=== PATIENT | male | born 1965 | race American Indian/Alaskan Native ===

== ENCOUNTER 2020-09-18 06:33 | Day surgery (SDC) | payer OTHER ==
[2020-09-18] MEDS ORDERED: SODIUM CHLORIDE 0.9% 1000 ML 1,000 ML IV SCH (07:00)
--- NOTE | 2020-09-18 08:23 | Discharge Summary ---
Providers - Providers Date of Admission: 09/18/2020 Date of discharge: 09/18/20 Attending physician: ALBERTO JAIMES MD Primary care physician: FELIX GUILLEN MD Hospitalization Reason for admission: s/p egd w/ bx Procedures: EGD with bx Hospital course: Pt presented for a pre-op EGD as part of planning for up coming bariatric surgery. Procedure was uneventful and pt recovered well and was discharged to home. Disposition: DC-01 TO HOME OR SELFCARE Final Discharge Diagnosis (Prints w/discharge instructions): morbid obesity, gerd Core Measure Documentation - Palliative Care Palliative Care/ Comfort Measures: Not Applicable - Core Measures Any of the following diagnoses?: none Exam - Physical Exam Narrative exam: unchanged from pre-op - Constitutional Vitals: Temp Pulse Resp BP Pulse Ox 97.5 F L 76 19 118/79 97 09/18/20 07:20 09/18/20 07:20 09/18/20 07:20 09/18/20 07:20 09/18/20 07:20 Plan Activity: advance as tolerated Diet: low carbohydrate Follow up with: FELIX GUILLEN MD [Primary Care Provider] - 7 Days
--- NOTE | 2020-09-18 08:24 | Operative Report ---
Operative Report Operative Report: DATE: 09/18/2020 SURGERY: Upper endoscopy. SURGEON: Tequila Boyer M.D. PROCEDURE: EGD with biopsy PRE OP DX: morbid obesity, dyspepsia POST OP DX: morbid obesity, dyspepsia TYPE OF ANESTHESIA: MAC. ESTIMATED BLOOD LOSS: None. COMPLICATIONS: None. SPECIMENS REMOVED: antral biopsy FINDINGS: 1. Small hiatal hernia. 2. gastritis INDICATIONS:INDICATION FOR PROCEDURE: Patient is a 55-year-old male with a long history of morbid obesity. She is planned to have a weight loss procedure and is here for preoperative planning EGD. PROCEDURE DETAILS: After consent was reviewed, patient was taken back to the operating room where patient was placed in the left lateral decubitus position and a bite block was placed in the mouth. After a time-out was called, MAC anesthesia was initiated. I then passed the endoscope into her oropharynx, into her esophagus, visualized the entire esophagus, which was all within normal limits. Z-line was noted to about 40cm from incisors. I then visualized the stomach and the first portion of the duodenum and there were no abnormalities I could clearly visualize except for generalized gastritis consistent with peptic ulcer disease. A cold forceps biopsy of the antrum was taken and will be sent to pathology to evaluate for H.pylori. I then retroflexed the scope in the stomach and visualized the hiatus and I could see a small hiatal hernia. I then desufflated the stomach and removed the endoscope. Patient tolerated procedure well and was transferred to recovery room in good and stable condition.
[2020-09-18] MEDS ORDERED: fentaNYL 100 MCG/2 ML INJ ONE (08:30)
[2020-09-18] MEDS ORDERED: LIDOCAINE MPF (2%) 20 MG/1 ML VIAL 5 ML ONE (08:30)
[2020-09-18] MEDS ORDERED: ONDANSETRON 4 MG/2 ML INJ ONE (08:30)
[2020-09-18] MEDS ORDERED: propofoL 200 MG/20 ML VIAL IV ONE (08:32)
[2020-09-18 09:08] VITALS: BP 124/55
--- NOTE | 2020-09-18 18:49 | Anesthesia Day of Surgery ---
Anesthesia Day of Surgery - Day of Surgery Patient Examined: Yes Patient H&P Reviewed: Yes Patient is NPO: Yes
--- NOTE | 2020-09-18 18:50 | Anesthesia Consultation ---
Anesthesia Consult and Med Hx Date of service: 09/18/20 - Airway ROM Head & Neck: Adequate Mental/Hyoid Distance: Adequate Mallampati Class: Class III Intubation Access Assessment: Possibly Difficult - Pre-Operative Health Status ASA Pre-Surgery Classification: ASA3 Proposed Anesthetic Plan: MAC - Pulmonary Hx Sleep Apnea: Yes - Other Systems Hx Obesity: Yes
--- NOTE | 2020-09-18 18:50 | Post Anesthesia Evaluation ---
- Post Anesthesia Evaluation Patient Participated: Yes Airway Patent: Yes Stable Respiratory Function: Yes Nausea/Vomiting: No Temp > 96.8F: Yes Pain Manageable: Yes Adequeate Hydration: Yes Anesthesia Complications: No Block Receding Appropriately: Not Applicable Patient on Ventilator: No
== END 2020-09-18 06:34 | disposition home or self-care (01) ==
LOC: GIO 06:33
PROVIDERS: ATTEND Surgery
DX: K30 Functional dyspepsia (principal); E66.01 Morbid (severe) obesity due to excess calories; K29.50 Unspecified chronic gastritis without bleeding; K44.9 Diaphragmatic hernia without obstruction or gangrene; G47.30 Sleep apnea, unspecified; B96.81 Helicobacter pylori [H. pylori] as the cause of diseases classified elsewhere; Z68.43 Body mass index [BMI] 50.0-59.9, adult
CPT/HCPCS: 43239; 88305; 88342; J2405; J2704; J3010; J7030

== ENCOUNTER 2020-11-19 11:00 | Outpatient (CLI) | payer OTHER | END 2020-11-19 11:01 | disposition home or self-care (01) | LOC: SLR 11:00 | PROVIDERS: ATTEND Surgery | DX: G47.30 Sleep apnea, unspecified (principal) | CPT/HCPCS: G0399 ==

== ENCOUNTER 2021-01-21 06:12 | Inpatient (IN) | payer OTHER ==
[2021-01-18 10:20] LABS: Alanine Aminotransferase 38 units/L (7-56); Albumin 4.2 g/dL (3.9-5); BUN/Creatinine Ratio 19; Blood Urea Nitrogen 19 mg/dL (9-20); Calcium 9.4 mg/dL (8.4-10.2); Hemolysis Index 5
[2021-01-18 10:25] LABS: Hematocrit 49.9 % (35.5-45.6); Hemoglobin 16.6 gm/dl (11.8-15.2); Mean Corpuscular HGB Conc 33 % (32-34); Mean Corpuscular Volume 86 fl (84-94); Platelet Count 256 K/mm3 (140-440); Red Blood Count 5.81 M/mm3 (3.65-5.03)
--- NOTE | 2021-01-18 13:16 | Anesthesia Consultation ---
Anesthesia Consult and Med Hx Date of service: 01/21/21 - Airway Anesthetic Teeth Evaluation: Good ROM Head & Neck: Adequate Mental/Hyoid Distance: Adequate Mallampati Class: Class II Intubation Access Assessment: Probably Good - Pulmonary Exam CTA: Yes - Cardiac Exam Cardiac Exam: RRR - Pre-Operative Health Status ASA Pre-Surgery Classification: ASA3 Proposed Anesthetic Plan: General - Pulmonary Hx Smoking: No Hx Respiratory Symptoms: No (normal PFTs) Hx Sleep Apnea: Yes (+ CPAP, severe CASIMIRO recently diagnosed) - Cardiovascular System Hx Hypertension: No Hx Heart Attack/AMI: No (neg nuc stress test; normal EF) Hx Cardia Arrhythmia: No (frequent PVCs noted after exercise stress test) - Central Nervous System CVA: No - Endocrine Hx Renal Disease: No Hx Liver Disease: No Hx Insulin Dependent Diabetes: No Hx Non-Insulin Dependent Diabetes: No Hx Thyroid Disease: No - Other Systems Hx Obesity: Yes (BMI 55) - Additional Comments Anesthesia Medical History Comments: No hx anesthetic complications. Preop pulmonary, cardiology, and medical evals reviewed.
[~2021-01-21 06:12] MED LIST: ACETAMINOPHEN IV 1,000 MG/100 ML BOTTLE IV NR; ENOXAPARIN 40 MG/0.4 ML INJ SUB-Q NR; GABAPENTIN 500 MG/10 ML ORAL LIQD PO NR; LACTATED RINGERS 1,000 ML IV SCH; MIDAZOLAM 2 MG/2 ML INJ IV NR; SCOPOLAMINE TRANSDERMAL PATCH 72 HR TD NR; methOCARBAMOL 1,000 MG in SODIUM CHLORIDE 0.9% 250ML 250 ML IV ONE; metroNIDAZOLE/NS 500 MG/100 ML 500 MG/100 ML BAG IV NR
[2021-01-21] MEDS ORDERED: LACTATED RINGERS 1,000 ML ONE (06:26)
[2021-01-21] MEDS ORDERED: GABAPENTIN 500 MG/10 ML ORAL LIQD ONE (06:27)
[2021-01-21] MEDS ORDERED: LIDOCAINE MPF (2%) 20 MG/1 ML VIAL 5 ML ONE (07:04)
[2021-01-21] MEDS ORDERED: KETAMINE/STERILE WATER 50 MG/ML SYRINGE ONE (07:05)
[2021-01-21] MEDS ORDERED: HYDROmorphone 1 MG/1 ML INJ IV PRN ×3 (07:18→10:55)
[2021-01-21] MEDS ORDERED: ONDANSETRON 4 MG/2 ML INJ IV PRN ×2 (07:18→10:55)
--- NOTE | 2021-01-21 07:18 | Anesthesia Day of Surgery ---
Anesthesia Day of Surgery - Day of Surgery Patient Examined: Yes Patient H&P Reviewed: Yes Patient is NPO: Yes
[2021-01-21] MEDS ORDERED: MAGNESIUM SULFATE 2 GM/50 ML BAG IV ONE (07:19)
[2021-01-21] MEDS ORDERED: SUGAMMADEX SODIUM 200 MG/2 ML VIAL IV ONE (07:19)
[2021-01-21] MEDS ORDERED: BUPIVACAINE/PF (0.25%) 2.5 MG/ML 30 ML VIAL INFILTRATI ONE (07:35)
[2021-01-21] MEDS ORDERED: LIDOCAINE 1%/EPINEPHRINE 1:100,000 VIAL (20 ML) INFILTRATI ONE ×2 (07:35→09:07)
[2021-01-21] MEDS ORDERED: MIDAZOLAM 2 MG/2 ML INJ ONE (07:51)
--- OUTSIDE RECORDS SUMMARY | 2021-01-21 08:22 | External Medical Summary ---
:1965 Author Organization [facility], [facility] Address [address] [place] [address] Care Team Providers Name Role Phone Tequila Boyer Unavailable [phone] PROBLEMS Type Condition ICD9-CM HSU33-NU Onset Condition W/U Status Risk SNOM ED Notes Code Code Dates Status Code Problem Gastro-esopha K21.9 Active confirmed 602609 [id number] geal reflux disease without esophagitis Problem Sleep apnea, G47.30 Active confirmed 5870400 [id number] unspecified Problem Dietary Z71.3 Active confirmed 888825558 counseling and surveillance Problem Morbid E66.01 Active confirmed 693973121 (severe) obesity due to excess calories Problem Sleep G47.9 Active confirmed [id number] disorder, unspecified Problem 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 obesity due to excess of [facility] [place], [place] calorie s E66.01 ; [address] Gastro-esophage al reflux disease without esophagitis K21 .9 and Sleep apnea, unspecified G47 .30 IMMUNIZATIONS No Information SOCIAL HISTORY Sex Assigned At : Social History Observation Description Sex Assigned At Unknown REASON FOR REFERRAL from 1965 to 2021-01-18 Reason Gastric Bypass Diagnosis 1 Morbid (severe) obesity due to excess calories (E66.01) Diagnosis 2 Functional dyspepsia (K30) Diagnosis 3 Sleep disorder, unspecified (G47.9) Diagnosis 4 Gastro-esophageal reflux dis ease without esophagitis (K21.9) Diagnosis 5 Dietary counseling and surve illance (Z71.3) Diagnosis 6 Sleep apnea, unspecified (G4 7.30) Referral Organization [facility] Referring Provider First Name Tequila Referring Provider Last Name Rosalind Referring Provider Specialty Surgery Referred Provider Formerly [facility], - Referral Priority Routine VITAL SIGNS Height 72 in Dec, Weight 413 lbs Dec, Temperature 98 degrees Fahrenheit Dec, BMI 56.2 kg/m2 Dec, Blood pressure systolic 133 mm Hg Dec, Blood pressure diastolic 92 mm Hg Dec, MEDICATIONS Medication SIG (Take, Route, Notes Start Date End Date Status Frequency, Duration) Ondansetron 4 MG 1-2 tablet on the Dec, Active tongue and allow to dissolve Orally q 4-6 hours prn nausea for 30 day(s) Esomeprazole Magnesium 1 capsule Orally Once Dec, Active 40 MG a day for 30 day(s) NexIUM 40 MG 1 capsule Orally Once Sep, Active a day for 30 days Multivitamin Adults 50+ as directed Orally Active - HYDROcodone-Acetaminophe 15 ml as needed Orally Dec,Dec, Active n 7.5-325 MG/15ML every 6 hrs for 7 days PROCEDURES No Information RESULTS No Results REASON FOR VISIT Pre Op Bypass MEDICAL (GENERAL) HISTORY Type Description Date Medical History leg swelling Medical History urinary incontinence Medical History sleep apnea Medical History gerd Surgical History surgery for right broken leg 1976 Goals Section No Information Health Concerns No Information MEDICAL EQUIPMENT No Information MENTAL STATUS No Information FUNCTIONAL STATUS No Information ASSESSMENTS Encounter Date Diagnosis Assessment Notes Treatment Notes Treatm ent Clinical Notes Dec, Morbid (severe) An hour was spent obesity due to with patient excess calories reinforcing diet, (ICD-10 - E66.01) vitamin requirements and lifestyle education, A quiz was administered and reviewed to verify understanding of intended procedure and post operative care. Consent forms were reviewed with patient and signed answering all questions, Pre-operative labs were ordered. Dec, Gastro-esophageal Symptoms are reflux disease resolved after without gastric bypass. We esophagitis will continue to (ICD-10 - K21.9) take Nexium after surgery. Dec, Sleep apnea, Should improve after unspecified weight loss surgery. (ICD-10 - G47.30) Continue CPAP until no longer indicated. PLAN OF TREATMENT Medication Medication Name Sig Start Date Stop Date HYDROcodone-Acetaminophen 15 ml as needed Orally Dec, Dec, 7.5-325 MG/15ML every 6 hrs for 7 days Ondansetron 4 MG 1-2 tablet on the tongue Dec, and allow to dissolve Orally q 4-6 hours prn nausea for 30 day(s) Esomeprazole Magnesium 40 MG 1 capsule Orally Once a day Dec, for 30 day(s) Treatment Notes Assessment Notes Clinical Notes Morbid (severe) obesity due to An hour was spent with patinavi t excess calories reinforcing diet, vitamin requirements and lifestyle education, A quiz was administered and reviewed to verify understanding of intended procedure and post operative care. Consent forms were reviewed with patient and signed answering all questions, Pre-operative labs were ordered. Gastro-esophageal reflux disease Symptoms are resolved after gastric without esophagitis bypass. We will continue to take Nexium after surgery. Sleep apnea, unspecified Should improve after weight loss surgery. Continue CPAP until no longer indicated. Referrals Referral Date Details Gastric Bypass Next Appt Details For surgery Reason: Provider Name:Tequila Boyer, 2020-12-2 9 10:30:00 AM, [address] , [place], [place], [phone], Provider Name:Tequila Boyer, 2021-01-0 1 08:15:00 AM, [address], [place], [place], [phone],
[2021-01-21] MEDS ORDERED: ePHEDrine SULFATE 50 MG/1 ML INJ ONE (08:50)
[2021-01-21] MEDS ORDERED: BUPIVACAINE/PF (0.5%) 5 MG/1 ML 30 ML VIAL INFILTRATI ONE (09:06)
[2021-01-21] MEDS ORDERED: SODIUM CHLORIDE 0.9% IRR 1,500 ML BOTTLE IR ONE (09:08)
[2021-01-21] MEDS ORDERED: SODIUM CHLORIDE 0.9% IRRIG SOLN 2000 ML IR ONE (09:08)
[2021-01-21] MEDS ORDERED: dexAMETHasone 20 MG/5 ML VIAL ONE (09:30)
[2021-01-21] MEDS ORDERED: ONDANSETRON 4 MG/2 ML INJ ONE (09:36)
[2021-01-21] MEDS ORDERED: ATROPINE 0.4 MG/1 ML INJ ONE (09:36)
[2021-01-21] MEDS ORDERED: ROCURONIUM 50 MG/5 ML INJ IV ONE (09:36)
[2021-01-21] MEDS ORDERED: SIMETHICONE 80 MG CHEW TAB PO PRN (10:55)
[2021-01-21] MEDS ORDERED: METOCLOPRAMIDE 10 MG/2 ML INJ IV PRN (10:55)
[2021-01-21] MEDS ORDERED: HYDROcodone/Acetaminophen 7.5-325MG-15ML ORAL LIQD PO PRN (10:55)
[2021-01-21] MEDS ORDERED: hydrALAZINE 20 MG/1 ML INJ IV PRN (10:55)
[2021-01-21] MEDS ORDERED: MORPHINE 2 MG/1 ML INJ IV PRN (10:55)
--- NOTE | 2021-01-21 11:04 | Operative Report ---
Operative Report Operative Report: DATE OF PROCEDURE: 01/21/2021 SURGEON: Tequila Boyer M.D. DIRECTOR RECREATION: Madyson Krueger CSA MD PREOPERATIVE DIAGNOSIS: Morbid obesity. POSTOPERATIVE DIAGNOSES: Morbid obesity PROCEDURES PERFORMED: 1. Laparoscopic gastric bypass. 2. EGD. ANESTHESIA: General endotracheal tube intubation. SPECIMENS: None. ESTIMATED BLOOD LOSS: Less than 20 mL. FINDINGS: Normal anatomy. COMPLICATIONS: None. INDICATION: Mr. Love is a 55-year-old male with history of morbid obesity and sleep apnea who is here for bariatric surgery for weight loss. He signed informed consent and expressed understanding of risks and benefits. DESCRIPTION OF PROCEDURE: Patient was brought to the OR suite, laid in supine position. Bilateral lower extremity SCDs were placed. General anesthesia was induced via successful endotracheal tube intubation. Patient's abdomen was prepped and draped in sterile fashion. A veress needle was used to insuflate the abdomen to a pressure of 15 mmHg in the left subcostal region. Using Optiview technique, a 5- mm trocar was placed into the abdominal cavity under direct vision just superior and to the left of the umbilicus. There was noted to be no gross injury to any intraabdominal structures. 12 mm in the right mid abdomen mid clavicular line and three 5-mm trocars in the right upper quadrant, epigastric areas were placed under direct visualization. At this time, the ligament of Treitz identified and followed down approximately 75 cm and the jejunum was transected. The distal segment of jejunum was then traced for approximately 100 cm and a stable [id number] jejunojejunostomy was performed. The common enterotomy was closed with 2 firings of the endoscopic stapler. The mesenteric defect was closed with running Surgidac suture. This anastomosis was found to be patent without kink, obstruction or bleeding. At this time, the patient was placed in steep reverse Trendelenburg position. A liver retractor was placed through the epigastric port to elevate the left lateral lobe of the liver. A small gastric pouch was formed with serial firings of the blue load on a laparoscopic stapler. The Michael limb was then brought in an antegastric antecolic fashion and secured with 2 stay sutures to the gastric pouch. After this, the enterotomies were made with Harmonic scalpel, and a [id number] stapled gastrojejunostomy was performed with a mechanical stapler. After this, a 2-layer running closure using absorbable V-lock suture were done, the first being mucosal approximation prior to completion of the first layer. Then I passed and an EGD scope beyond the anastomosis to act as a stent. The first layer was completed, the second was then performed. After this, the EGD was retracted slightly. A bowel clamp was placed in a proximal Michael limb. The anastomosis was submerged under saline. Via intraluminal EGD insufflation, there was noted be no bubbles in the saline indicating an airtight anastomosis. There was noted to be no obstruction or bleeding intraluminally in the pouch or the anastomosis. At this time, the scope was removed. The saline was aspirated. Vistaseal was placed over the anastomosis. All trocars were removed under direct visualization and the abdomen was then desufflated. A TAP block was performed using a total of 60 mL 0.25% Marcaine along bilateral mid axillary lines starting at the subcostal margin at the level of the umbilicus. The 12mm trocar site was closed using PDS and a Wilfred Kartik son device for fear that after surgery it become incarcerated. The skin incisions were closed with 4-0 Monocryl followed by Dermabond dressings. Patient was awoken and taken to recovery in stable condition. All counts were correct.
[2021-01-21] MEDS: KETOROLAC 30 MG/1 ML INJ IV SCH ×2 (11:53→20:33)
[2021-01-21] MEDS: PANTOPRAZOLE 40 MG INJ IV SCH (11:57)
[2021-01-21] MEDS: ACETAMINOPHEN IV 1,000 MG/100 ML BOTTLE IV SCH ×2 (20:32)
[2021-01-21] MEDS: ceFAZolin/NS 1 GM/50 ML 1 GM/50 ML BAG IV SCH (20:33)
[2021-01-21] MEDS: LACTATED RINGERS 1,000 ML IV SCH (20:58)
[2021-01-21] MEDS: metroNIDAZOLE/NS 500 MG/100 ML 500 MG/100 ML BAG IV SCH (21:34)
[2021-01-22] MEDS: KETOROLAC 30 MG/1 ML INJ IV SCH ×5 (02:47→23:53)
[2021-01-22] MEDS: ACETAMINOPHEN IV 1,000 MG/100 ML BOTTLE IV SCH ×2 (02:57→09:00)
[2021-01-22] MEDS: ceFAZolin/NS 1 GM/50 ML 1 GM/50 ML BAG IV SCH (02:57)
[2021-01-22] MEDS: metroNIDAZOLE/NS 500 MG/100 ML 500 MG/100 ML BAG IV SCH ×2 (04:22→09:02)
[2021-01-22 06:21] LABS: Basophils % (Auto) 0.1 % (0.0-1.8); Hematocrit 45.7 % (35.5-45.6); Hemoglobin 15.5 gm/dl (11.8-15.2); Lymphocytes # (Auto) 1.3 K/mm3 (1.2-5.4); Lymphocytes % (Auto) 20.8 % (13.4-35.0); Mean Corpuscular HGB Conc 34 % (32-34); Mean Corpuscular Volume 85 fl (84-94); Monocytes # (Auto) 0.7 K/mm3 (0.0-0.8); Platelet Count 254 K/mm3 (140-440); Red Blood Count 5.36 M/mm3 (3.65-5.03); Red Cell Distribution Width 13.8 % (13.2-15.2)
[2021-01-22 06:35] LABS: Alanine Aminotransferase 46 units/L (7-56); Albumin 3.6 g/dL (3.9-5); BUN/Creatinine Ratio 12; Blood Urea Nitrogen 12 mg/dL (9-20); Calcium 8.7 mg/dL (8.4-10.2); Hemolysis Index 6
[2021-01-22] MEDS: LACTATED RINGERS 1,000 ML IV SCH ×2 (09:01→23:54)
[2021-01-22] MEDS: ENOXAPARIN 40 MG/0.4 ML INJ SUB-Q SCH (09:01)
[2021-01-22] MEDS: PANTOPRAZOLE 40 MG INJ IV SCH (09:01)
--- NOTE | 2021-01-22 14:58 | Post Anesthesia Evaluation ---
- Post Anesthesia Evaluation Patient Participated: Yes Airway Patent: Yes Stable Respiratory Function: Yes Nausea/Vomiting: No Temp > 96.8F: Yes Pain Manageable: Yes Adequeate Hydration: Yes Anesthesia Complications: No Block Receding Appropriately: Yes Patient on Ventilator: No
--- NOTE | 2021-01-22 16:25 | Progress Note ---
Assessment and Plan Postop day #1 status post laparoscopic gastric bypass. Afebrile and stable. Tolerating liquids. If patient does well overnight with continued ambulation and tolerating of liquids will discharge tomorrow. Subjective Date of service: 01/22/21 Narrative: No acute events overnight. Patient denies uncontrolled pain, nausea or vomiting. He says that he has some burning when he urinates and explained that is likely due to the fact that he had a Young during his procedure. Objective Vital Signs - 12hr 01/22/21 01/22/21 01/22/21 04:28 05:20 08:14 Temperature 98.2 F 98.2 F Pulse Rate 84 78 77 Respiratory 18 17 18 Rate Blood Pressure 153/77 125/77 Blood Pressure 148/78 [Right] O2 Sat by Pulse 93 100 Oximetry 01/22/21 01/22/21 01/22/21 08:28 12:03 12:11 Temperature 98.5 F Pulse Rate 71 Respiratory 18 18 Rate Blood Pressure 115/69 Blood Pressure [Right] O2 Sat by Pulse 100 96 97 Oximetry - General physical appearance well developed, no distress, no pain, obese - Eyes PERRL - Respiratory normal expansion, normal respiratory effort - Abdomen soft, other (Incisions clean dry and intact, appropriately tender to palpation) - Labs 01/22/21 05:06 01/22/21 05:06 Diabetes panel 01/22/21 Range/Units 05:06 Sodium 137 (137-145) mmol/L Potassium 4.3 (3.6-5.0) mmol/L Chloride 101.9 (98-107) mmol/L Carbon Dioxide 23 (22-30) mmol/L BUN 12 (9-20) mg/dL Creatinine 1.0 (0.8-1.3) mg/dL Glucose 103 H (75-100) mg/dL Calcium 8.7 (8.4-10.2) mg/dL AST 43 H (5-40) units/L ALT 46 (7-56) units/L Alkaline Phosphatase 75 (35-129) units/L Total Protein 7.0 (6.3-8.2) g/dL Albumin 3.6 L (3.9-5) g/dL Calcium panel 01/22/21 Range/Units 05:06 Calcium 8.7 (8.4-10.2) mg/dL Albumin 3.6 L (3.9-5) g/dL Pituitary panel 01/22/21 Range/Units 05:06 Sodium 137 (137-145) mmol/L Potassium 4.3 (3.6-5.0) mmol/L Chloride 101.9 (98-107) mmol/L Carbon Dioxide 23 (22-30) mmol/L BUN 12 (9-20) mg/dL Creatinine 1.0 (0.8-1.3) mg/dL Glucose 103 H (75-100) mg/dL Calcium 8.7 (8.4-10.2) mg/dL Adrenal panel 01/22/21 Range/Units 05:06 Sodium 137 (137-145) mmol/L Potassium 4.3 (3.6-5.0) mmol/L Chloride 101.9 (98-107) mmol/L Carbon Dioxide 23 (22-30) mmol/L BUN 12 (9-20) mg/dL Creatinine 1.0 (0.8-1.3) mg/dL Glucose 103 H (75-100) mg/dL Calcium 8.7 (8.4-10.2) mg/dL Total Bilirubin 0.90 (0.1-1.2) mg/dL AST 43 H (5-40) units/L ALT 46 (7-56) units/L Alkaline Phosphatase 75 (35-129) units/L Total Protein 7.0 (6.3-8.2) g/dL Albumin 3.6 L (3.9-5) g/dL
[2021-01-23 05:09] LABS: Basophils % (Auto) 0.6 % (0.0-1.8); Eosinophils # (Auto) 0.1 K/mm3 (0.0-0.4); Eosinophils % (Auto) 1.3 % (0.0-4.3); Hematocrit 44.2 % (35.5-45.6); Hemoglobin 14.8 gm/dl (11.8-15.2); Lymphocytes # (Auto) 2.2 K/mm3 (1.2-5.4); Lymphocytes % (Auto) 45.3 % (13.4-35.0); Mean Corpuscular HGB Conc 34 % (32-34); Mean Corpuscular Volume 86 fl (84-94); Monocytes # (Auto) 0.5 K/mm3 (0.0-0.8); Monocytes % (Auto) 10.9 % (0.0-7.3); Platelet Count 220 K/mm3 (140-440); Red Blood Count 5.13 M/mm3 (3.65-5.03)
[2021-01-23 05:25] LABS: Alanine Aminotransferase 51 units/L (7-56); Albumin 3.3 g/dL (3.9-5); BUN/Creatinine Ratio 12; Blood Urea Nitrogen 12 mg/dL (9-20); Calcium 8.5 mg/dL (8.4-10.2); Hemolysis Index 7
[2021-01-23] MEDS: KETOROLAC 30 MG/1 ML INJ IV SCH (07:13)
[2021-01-23 08:46] VITALS: BP 120/73
[2021-01-23] MEDS: PANTOPRAZOLE 40 MG INJ IV SCH (09:31)
[2021-01-23] MEDS: ENOXAPARIN 40 MG/0.4 ML INJ SUB-Q SCH (09:31)
--- NOTE | 2021-01-23 10:04 | Discharge Summary ---
Providers - Providers Date of Admission: 01/21/21 06:12 Date of discharge: 01/23/21 Attending physician: ALBERTO JAIMES MD 01/21/21 10:55 Physical Therapy Evaluation and Treat [CONS] Routine Comment: Reason For Exam: s/p bariatric surgery Primary care physician: ANTONIA MACIAS Hospitalization Reason for admission: s/p bariatric surgery Condition: Good Procedures: laparoscopic gastric bypass Hospital course: Patient was admitted after an uneventful laparoscopic gastric bypass for morbid obesity. Patient recovered well as he remains afebrile and hemodynamically stable with laboratory values within normal limits. Patient was tolerating clear liquids and ambulating without difficulty. Patient was discharged on postop day 1 without any gross clinical signs of leak or bleeding. Disposition: 01 HOME / SELF CARE / HOMELESS Final Discharge Diagnosis (Prints w/discharge instructions): morbid obesity, sleep apnea Core Measure Documentation - Palliative Care Palliative Care/ Comfort Measures: Not Applicable - Core Measures Any of the following diagnoses?: none Exam - Constitutional Vitals: Temp Pulse Resp BP Pulse Ox 99.7 F H 80 18 120/73 94 01/23/21 08:33 01/23/21 08:33 01/23/21 08:33 01/23/21 08:33 01/23/21 08:33 General appearance: Present: no acute distress, well-nourished, obese - EENT Eyes: Present: PERRL ENT: hearing intact - Respiratory Respiratory effort: normal - Cardiovascular Heart Sounds: Present: S1 & S2 - Extremities Extremities: no ischemia - Abdominal General gastrointestinal: Present: soft (Incisions clean dry and intact, appropriately tender to palpation. REJI drain serosanguineous with minimal output.) Plan Activity: advance as tolerated Diet: clear liquids Wound: open to air, keep clean and dry, other (Change REJI dressing once daily until wound is dry) Follow up with: ANTONIA MACIAS RN [Primary Care Provider] - 7 Days
[2021-01-24] MEDS ORDERED: SCOPOLAMINE TRANSDERMAL PATCH 72 HR TD SCH (10:00)
== END 2021-01-23 12:50 | disposition home or self-care (01) | DRG 621 ==
LOC: 3A 06:12 → 4A 11:51
PROVIDERS: ADMIT Surgery; ATTEND Surgery
PROC: 0DJ08ZZ Inspection of Upper Intestinal Tract, Via Natural or Artificial Opening Endoscopic (ICD-10-PCS; principal; 2021-01-21)
PROC: 0D164ZA Bypass Stomach to Jejunum, Percutaneous Endoscopic Approach (ICD-10-PCS; 2021-01-21)
DX: E66.01 Morbid (severe) obesity due to excess calories (principal); Z68.43 Body mass index [BMI] 50.0-59.9, adult
CPT/HCPCS: 36415; 80053; 85025; 85027; 94660; 94760; G0378; A4217; C9113; J0131; J0461; J0690; J1100; J1650; J1885; J2250; J2405; J2704; J3475; J3490; J7120